=== PATIENT | male | born 1990 | race Caucasian/White ===

== ENCOUNTER 2022-11-03 14:47 | Emergency (ER) | payer BC, OTHER ==
[2022-11-03] MEDS ORDERED: Lidocaine 1% 10 ML MDV INJECT ONE (15:04)
== END 2022-11-03 16:14 | disposition home or self-care (01) ==
LOC: JD.ED 14:47
DX: S61.213A Laceration without foreign body of left middle finger without damage to nail, initial encounter (principal); Z88.0 Allergy status to penicillin; W26.8XXA Contact with other sharp object(s), not elsewhere classified, initial encounter; Y92.89 Other specified places as the place of occurrence of the external cause; Y99.0 Civilian activity done for income or pay
CPT/HCPCS: 12001; 99282; J3490